=== PATIENT | female | born 1955 | race Caucasian/White ===

== ENCOUNTER 2019-04-13 06:36 | Day surgery (SDC) | payer OTHER ==
[~2019-04-13] VITALS: Ht 167.6 cm; Wt 92.7 kg
[~2019-04-13 06:36] MED LIST: SODIUM CHLORIDE 0.9% 1,000 ML IV ONE
[2019-04-13] MEDS ORDERED: LIDOCAINE 2% 30 ML JELLY TP ONE (06:37)
[2019-04-13] MEDS ORDERED: ALBUTEROL SULFATE 2.5 MG/0.5 ML NEB SOLUTION NEB ONE (06:37)
[2019-04-13] MEDS ORDERED: BENZOCAINE 20% 50 MCG/SPRAY 57 GM TP ONE (06:37)
[2019-04-13] MEDS ORDERED: LEVO150 PO (07:26)
[2019-04-13] MEDS ORDERED: METF-960 PO (07:26)
[2019-04-13] MEDS ORDERED: VITAD1000 PO (07:26)
[2019-04-13] MEDS ORDERED: GABA-533 PO (07:26)
[2019-04-13] MEDS ORDERED: METO50 PO (07:26)
[2019-04-13 07:44] LABS: GLUCOMETER DEV NAME(LOC) SDS.; GLUCOSE,POINT OF CARE 191 MG/DL (70-110)
[2019-04-13] MEDS ORDERED: MIDAZOLAM HCL 2 MG/2 ML VIAL ONE (09:12)
[2019-04-13] MEDS ORDERED: FentaNYL CITRATE-PF 100 MCG/2 ML VIAL ONE (09:12)
[2019-04-13] MEDS ORDERED: MethylPREDNISolone SOD SUCC 125 MG/2 ML VIAL IVP ONE (09:45)
[2019-04-13] MEDS ORDERED: OXYGEN THERAPY IH SCH (20:00)
== END 2019-04-13 10:50 | disposition home or self-care (01) ==
LOC: SURGERY 06:36
PROVIDERS: ATTEND Internal Medicine Critical Care Medicine
DX: J38.4 Edema of larynx (principal); B37.0 Candidal stomatitis; E11.9 Type 2 diabetes mellitus without complications; J44.9 Chronic obstructive pulmonary disease, unspecified; F17.210 Nicotine dependence, cigarettes, uncomplicated; E03.9 Hypothyroidism, unspecified; M06.9 Rheumatoid arthritis, unspecified; Z98.51 Tubal ligation status; Z90.710 Acquired absence of both cervix and uterus; Z98.890 Other specified postprocedural states; Z90.49 Acquired absence of other specified parts of digestive tract; Z87.01 Personal history of pneumonia (recurrent)
CPT/HCPCS: 31623; 31624; 71045; 82962; 87015; 87070; 87101; 87205; 87206; 87220; 93005; J2250; J2930; J3010; J7030; 88108; 88312